=== PATIENT | female | born 1950 | race Caucasian/White ===

== ENCOUNTER 2024-02-15 08:42 | Emergency (ER) | payer MEDICARE, OTHER, SELFPAY ==
[2024-02-15 08:44] VITALS: BP 109/53
[2024-02-15 08:58] VITALS: BMI 23.3
[2024-02-15 09:00] VITALS: BP 116/90
[2024-02-15 09:15] LABS: Hematocrit 38.7 % (37.0-47.0); Hemoglobin 12.4 g/dL (12.0-16.0); Mean Corpuscular Hgb 27.6 pg (27.0-31.0); Mean Corpuscular Volume 86.2 fL (81.0-99.0); Mean Platelet Volume 9.6 fL (7.4-10.4); Platelet Count 445 10^3/uL (130-400); Red Blood Cell Count 4.49 10^6/uL (4.20-5.40); Red Cell Dist. Width 14.1 % (11.5-14.5); White Blood Cell Count 23.4 10^3/uL (4.8-10.8)
[2024-02-15 09:16] LABS: ALT (SGPT) 17 U/L (0-35); AST (SGOT) 26 U/L (14-36); Albumin 3.9 g/dl (3.5-5.0); Alkaline Phosphatase 70 U/L (38-126); Blood Urea Nitrogen 15 mg/dl (7-17); Carbon Dioxide 33 mmol/L (22-30); Chloride 94 mmol/L (98-107); Estimated Creatinine Clearance 68 ml/min; Glucose 117 mg/dl (70-99); Lipase 145 U/L (23-300); Potassium 3.4 mmol/L (3.5-5.1); Sodium 138 mmol/L (135-145); Total Bilirubin 1.1 mg/dl (0.2-1.3); Total Protein 6.3 g/dl (6.3-8.2); eGFR > 60.00
--- NOTE | 2024-02-15 09:16 | ED.GENMED ---
History of Present Illness
General
Chief Complaint: Fainting/Passed Out
Time Seen by Provider: 02/15/24 08:48
History of Present Illness
History of Present Illness:
73-year-old female presenting to the emergency department with syncope and diarrhea. Patient reports for the past 3 weeks she has had diarrhea and abdominal cramping. Notes initially the cramping was severe, talk to her primary care doctor and
started a bland diet for suspected viral enteritis. The cramping improved, and noted that she had previously had fever that resolved. About 4 days ago, she made broth with tomi, which she feels worsened her symptoms. She again is having lower
abdominal cramping, persistent diarrhea. Denies any blood in the diarrhea. Denies known sick contacts. Does note that she was on antibiotics for 2 weeks, stopped antibiotics about 2 weeks ago after she had a bladder surgery. She believes that
could be contributing to her symptoms. Today, while she was trying to have bowel movement, she reports she was straining and subsequently had a syncopal episode. Notes associated lightheadedness. Denies prodromal chest pain or difficulty
breathing. Does report history of a syncopal episode in the past. Denies additional acute medical complaints
Phy Exam
Physical Exam
Physical Exam:
General: Well-appearing, no clinical signs of dehydration, nontoxic and in no acute distress
HEENT: protecting airway
Neck: appears supple
CV: Normal heart rate, regular rhythm
Resp: No accessory muscle use, no increased work of breathing, lungs clear to auscultation bilaterally
Abd: Soft and non-distended, generalized nonfocal tenderness to lower abdomen
Extremities: No deformities, no swelling
Neuro: alert, no focal neurologic deficit
: deferred
Rectal: deferred
Psych: Normal affect
Skin: Intact
Course
Orders/Labs/Results
Orders:
Orders
02/15/24 08:49
Cardiac Monitoring- Treatment ONCE
IV Insert/Care/Rem.- Treatment PRN
02/15/24 08:52
Complete Blood Count/With Diff Urgent
Comprehensive Metabolic Panel Urgent
Lipase Urgent
02/15/24 09:12
CT Abd/pelvis W Iv Cont Urgent
Comment:
Reason For Exam: lower abdominal pain, diarrhea
STOOL [C difficile Antigen & Toxins] Urgent
EFREM Source: Feces/Stool
Specimen Description:
Stool Culture Urgent
EFREM Source: Feces/Stool
Specimen Description:
0.9% Sodium Chloride 1000 ml [Nss] 1,000 ml IV BOLUS
02/15/24 09:13
Electrocardiogram (*1) Urgent
Reason for Study: Syncope
EKG- Treatment ONCE
02/15/24 09:19
Troponin I Urgent
Abnormal Lab Results
02/15/24
08:52
WBC 23.4 H 10^3/uL
(4.8-10.8)
MCHC 32.0 L g/dL
(33.0-37.0)
Plt Count 445 H 10^3/uL
(130-400)
Abs Immat Gran (auto) 0.2 H 10^3/uL
(0-0.05)
Absolute Neuts (auto) 20.2 H 10^3/uL
(1.4-6.5)
Absolute Monos (auto) 1.0 H 10^3/uL
(0.1-0.6)
Immature Gran % 1.0 H %
(0-0.5)
Neutrophils % 86.1 H %
(42.2-75.2)
Lymphocytes % 7.8 L %
(20.5-51.1)
Potassium 3.4 L mmol/L
(3.5-5.1)
Chloride 94 L mmol/L
(98-107)
Carbon Dioxide 33 H mmol/L
(22-30)
Glucose 117 H mg/dl
(70-99)
12/16/24 08:52
02/15/24 08:52
Vital Signs
Initial and Last Documented VS:
Initial Vital Signs
Temp Pulse Resp BP Pulse Ox
98.4 F 88 18 109/53 97
02/15/24 08:44 02/15/24 08:44 02/15/24 08:44 02/15/24 08:44 02/15/24 08:44
Last Documented Vital Signs
Temp Pulse Resp BP Pulse Ox
98.4 F 98 25 119/64 94
02/15/24 08:44 02/15/24 13:00 02/15/24 13:00 02/15/24 13:00 02/15/24 13:00
MDM/Problems Addressed
MDM/Problems Addressed:
73-year-old female presenting for diarrhea, lower abdominal cramping, syncopal episode.
Vital signs on arrival are normal.
On exam, patient is nontoxic, however does have some dry mucous membranes. On abdominal exam, generalized nonfocal tenderness to lower abdomen, without rebound or guarding. Regarding GI illness, possible enteritis. Does note recent antibiotic
usage, so C. difficile is a consideration. However, patient notes that her stool is still brown in color. Diverticulitis is also consideration given tenderness to lower abdomen. Given duration of symptoms, plan for laboratory analysis, CT imaging
of the abdomen. Will get stool samples if patient able to provide. Will start patient on IV fluids for suspicion of volume depletion. Regarding syncopal episode, suspect vasovagal component, was straining to have a bowel movement and appears
dehydrated to begin with. Will obtain EKG as well as laboratory analysis.
11:00 -Labs show elevated white blood cell count, normal electrolyte panel. Vitals otherwise remained stable without concern for sepsis. CT shows sigmoid colitis, consistent with exam. Pending stool sample for rule out C. difficile
13:00 -patient has been unable to provide a stool sample. At this time lower suspicion for C. difficile. Feel stable for discharge. Will start patient on Augmentin. Advised continued oral hydration. Advise following up with PCP, could provide a
stool sample at that time if needed. Strict return precautions were communicated, and patient and at bedside verbalized understanding
*EKG
Interpreted by ED Provider?: Yes
EKG Intrepretation Date: 02/15/24
EKG Intrepretation Time: 09:22
Interpretation: normal
Heart Rate: 86
Rate: normal
Rhythm: sinus
[place]: normal axis
Interval: normal interval
QRS Pattern: normal QRS
Ischemia: no ischemia
*Critical Care Note
Total Time (30-74mins, 75-104mins- exclusive of procedures): Not Applicable
ED Attending Note
-
Portions of this chart may have been created with voice recognition software.� Occasional wrong word or��sound alike� substitutions may have occurred due to the inherent limitations of voice recognition software.
Discharge Plan
Departure
Referrals:
Meño Ruby MD [Family Provider] -
Interventions
Interventions:
*Risk Screen - Suicide Last Done: 02/15/24 08:44
*General Assessment Last Done: 02/15/24 08:44
*Neglect/Abuse Screening Last Done: 02/15/24 08:44
ED- Fall Risk Assessment Last Done: 02/15/24 09:27
*ED COVID-19 Vaccine History Last Done: 02/15/24 09:30
ED- Cardiac Assessment Last Done: 02/15/24 09:27
ED- Neurological Assessment Last Done: 02/15/24 09:27
Discharge Date and Time
Print Language: SYRIAC
[2024-02-15] MEDS: NSS 1000 IV (09:22)
--- NOTE | 2024-02-15 09:25 | EDRN ---
Pt states she has had 5 weeks of 'diarrhea' described as 'squiggly things jovi in color ' and muscous. Pt states she had abd pain 10/10 and trying to push for a BM and fainted on the toilet this am.
[2024-02-15 09:52] LABS: Troponin I < 0.012 ng/ml
[2024-02-15 10:27] VITALS: BP 118/74
[2024-02-15 10:44] LABS: % Basophils 0.3 % (0-2); % Eosinophils 0.7 % (0-6); % Lymphocytes 7.8 % (20.5-51.1); % Monocytes 4.1 % (1.7-9.3); % Neutrophils 86.1 % (42.2-75.2); Absolute Basophils 0.1 10^3/uL (0-0.2); Absolute Eosinophils 0.2 10^3/uL (0-0.7); Absolute Immature Granulocytes 0.2 10^3/uL (0-0.05); Absolute Lymphocytes 1.8 10^3/uL (1.2-3.4); Absolute Neutrophils 20.2 10^3/uL (1.4-6.5); Nucleated Red Blood Cells % 0 %
[2024-02-15 11:00] VITALS: BP 110/72
--- NOTE | 2024-02-15 11:26 | EDRN ---
Pt ambulated w/ assist of one to BR to attempt a stool spec.
[2024-02-15 12:00] VITALS: BP 126/73
[2024-02-15 13:00] VITALS: BP 119/64
--- NOTE | 2024-02-15 13:01 | EDRN ---
Pt has not had a BM since arrival. Dr. Alvarez in room w/ pt at this time.
[2024-02-15] MEDS: AUGMENTIN 875 MG/125 MG 1 TABLET PO (13:19)
== END 2024-02-15 13:39 | disposition home or self-care (01) ==
LOC: EMR 08:42
PROVIDERS: EMERGENCY PHYSICIAN Student in an Organized Health Care Education/Training Program; FAMILY PHYSICIAN Family Medicine
DX: K52.9 Noninfective gastroenteritis and colitis, unspecified (principal); E86.0 Dehydration
CPT/HCPCS: 99285; 96360; 96361 ×2; 74177; 80053; 83690; 84484; 85025; 93005; Q9967

== ENCOUNTER 2024-03-22 06:21 | Emergency (ER) | payer MEDICARE, SELFPAY ==
[2024-03-22] VITALS (11 sets, daily range): BP systolic 102–127; BP diastolic 57–86; PULSE 91–111
[2024-03-22 06:53] LABS: Hematocrit 38.6 % (37.0-47.0); Hemoglobin 12.5 g/dL (12.0-16.0); Mean Corp Hgb Conc. 32.4 g/dL (33.0-37.0); Mean Corpuscular Hgb 27.8 pg (27.0-31.0); Mean Platelet Volume 10.9 fL (7.4-10.4); Platelet Count 250 10^3/uL (130-400); Red Blood Cell Count 4.49 10^6/uL (4.20-5.40); Red Cell Dist. Width 14.9 % (11.5-14.5); White Blood Cell Count 11.8 10^3/uL (4.8-10.8)
[2024-03-22 06:57] LABS: ALT (SGPT) 16 U/L (0-35); AST (SGOT) 27 U/L (14-36); Albumin 4.3 g/dl (3.5-5.0); Alkaline Phosphatase 58 U/L (38-126); Blood Urea Nitrogen 20 mg/dl (7-17); Calcium 9.5 mg/dl (8.4-10.2); Carbon Dioxide 28 mmol/L (22-30); Chloride 96 mmol/L (98-107); Estimated Creatinine Clearance 60 ml/min; Glucose 147 mg/dl (70-99); Potassium 3.9 mmol/L (3.5-5.1); Sodium 135 mmol/L (135-145); Total Bilirubin 2.9 mg/dl (0.2-1.3); Total Protein 6.8 g/dl (6.3-8.2); eGFR > 60.00
[2024-03-22 07:26] LABS: COVID-19 Antigen Negative (Negative)
[2024-03-22] MEDS: NSS 1000 IV ×2 (07:43→13:20)
[2024-03-22 07:49] LABS: Lipase 73 U/L (23-300)
[2024-03-22 08:11] LABS: Absolute Neutrophils -Man Diff 9.6 10^3/uL (1.4-6.5); Atypical Lymphocytes 2 %; Band Neutrophils 27 % (0-3); Lymphocytes 11 % (20-51); Metamyelocytes 1 % (-); Monocytes 4 % (2-9); Segmented Neutrophils 55 % (42-75)
[2024-03-22 08:12] LABS: Normal RBC Morphology Yes; Platelets Checked Yes; Total Cells Counted 100
--- NOTE | 2024-03-22 08:31 | ED.GENMED ---
History of Present Illness
General
Chief Complaint: Abdominal Symptoms
Source: patient and spouse
Exam Limitations: none
Time Seen by Provider: 03/22/24 07:16
Nursing documentation reviewed up to this point in time: agreed with
History of Present Illness
History of Present Illness:
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 difficile colitis on
02/15/24. Took Vancomycin for 10 days and improved
Presents today for frequent liquid diarrhea once yesterday and 3 times during the night. Non bloody. Had 100.9 temp last night. [place] nauseous, no vomiting. Denies abdominal pain. Feels fatigued
This a.m. went to wash herself in the shower as she was incontinent of diarrhea and had a near syncope episode, was with her and lowered her in the tub, no injury.
at bedside provided some of history
Past History
Past History
ED Past Medical History: HTN, Hypothyroidism and Other (C didd)
Social History
Tobacco: Non-smoker
Alcohol: None
Personal:
Living: with family
Employment: Not employed
Review of Systems
Review of Systems
Allergies reviewed?: Yes
All Other Systems: ROS reviewed and negative except as documented in HPI and ROS
Constitutional: Reports fever (Yesterday 100.6) and fatigue; Denies chills
Respiratory: Denies trouble breathing
Cardiac: Denies chest pain, palpitations or syncope
ABD/GI: Reports nausea, diarrhea and anorexia; Denies abdominal pain, vomiting, bloody stools or black stools
: Reports no symptoms
Musculoskeletal: Reports no symptoms
Skin: Reports no symptoms
Neurological: Reports no symptoms
Phy Exam
Physical Exam
Physical Exam:
GENERAL: No acute distress. A&Ox3.
CONSTITUTIONAL: Afebrile.
EYES: clear, conjunctivae normal
ENMT: moist mucus membranes, Pharynx nl
RESPIRATORY: Regular respirations, nonlabored, lungs clear.
CARDIOVASCULAR: Regular rate and rhythm, no murmurs, no rubs.
GI: Soft, nontender, normal BS
MUSCULOSKELETAL: Moves with ease. Well perfused.
SKIN: Warm, dry, pink
PSYCH: Normal mood and affect. Well kept, interactive and appropriate
NEUROLOGIC: Awake, alert and oriented. No focal neurological deficits
Course
Orders/Labs/Results
Orders:
Orders
03/22/24 06:32
CMP [Comprehensive Metabolic Panel] Urgent
COVID-19 Antigen Urgent
Source: Nasal Swab
Complete Blood Count/With Diff Urgent
Lipase Urgent
Comment: ADDED
Manual Differential Urgent
Influenza A+B Rapid Molecular Urgent
EFREM Source: Nasal Swab
Specimen Description:
03/22/24 06:48
Add On- LAB Urgent
Tests Added?: lipase
03/22/24 07:38
0.9% Sodium Chloride 1000 ml [Nss] 1,000 ml IV BOLUS
03/22/24 09:37
Norovirus by PCR Urgent
EFREM Source: Feces/Stool
Specimen Description:
Date Specimen was Collected: 03/22/24
Time Specimen was Collected: 09:34
STOOL [C difficile Antigen & Toxins] Urgent
EFREM Source: Feces/Stool
Specimen Description:
Date Specimen was Collected: 03/22/24
Time Specimen was Collected: 09:34
Stool Culture Urgent
EFREM Source: Feces/Stool
Specimen Description:
Date Specimen was Collected: 03/22/24
Time Specimen was Collected: 09:34
03/22/24 12:25
Orthostatic VS- Treatment ONCE
03/22/24 13:19
0.9% Sodium Chloride 1000 ml [Nss] 1,000 ml IV BOLUS
Abnormal Lab Results
03/22/24
06:32
WBC 11.8 H 10^3/uL
(4.8-10.8)
MCHC 32.4 L g/dL
(33.0-37.0)
RDW 14.9 H %
(11.5-14.5)
MPV 10.9 H fL
(7.4-10.4)
Abs Neuts (Manual) 9.6 H 10^3/uL
(1.4-6.5)
Band Neutrophils 27 H %
(0-3)
Lymphocytes (Manual) 11 L %
(20-51)
Chloride 96 L mmol/L
(98-107)
BUN 20 H mg/dl
(7-17)
Glucose 147 H mg/dl
(70-99)
Total Bilirubin 2.9 H mg/dl
(0.2-1.3)
03/22/24 06:32
03/22/24 06:32
Vital Signs
Initial and Last Documented VS:
Initial Vital Signs
Temp Pulse Resp BP Pulse Ox
98.2 F 106 18 116/81 97
03/22/24 06:22 03/22/24 06:22 03/22/24 06:22 03/22/24 06:22 03/22/24 06:22
Last Documented Vital Signs
Temp Pulse Resp BP Pulse Ox
98.2 F 95 18 118/69 93
03/22/24 06:22 03/22/24 12:15 03/22/24 12:15 03/22/24 12:00 03/22/24 12:15
MDM/Problems Addressed
Differential Diagnosis Includes:
Norovirus, C. difficile, dehydration
MDM/Problems Addressed:
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 difficile colitis on
02/15/24. I do not know how to need to be I mean that there does not hold somebody from a I know I I would never do it sounds like crazy but on the other text what about the took Vancomycin for 10 days and improved
Presents today for frequent liquid diarrhea once yesterday and 3 times during the night. Non bloody. Had 100.9 temp last night. [place] nauseous, no vomiting. Denies abdominal pain. Feels fatigued
This a.m. went to wash herself in the shower as she was incontinent of diarrhea and had a near syncope episode, was with her and lowered her in the tub, no injury.
Afebrile
NAD
7:15 a.m.
CBC mild leukocytosis, otherwise with no clinically significant abnormality
CMP: Total bilirubin 2.9, most likely reactive, BUN 20, IV fluids infusing otherwise no clinically significant abnormality
Influenza A&B neg
9:00 a.m.
Patient had 2 watery diarrheal stools, malodorous, nonbloody, cultures pending. Resting quietly with eyes closed. at bedside
11:45 a.m.
Stool Cdiff toxin positive
Norovirus neg
Plan: Vancomycin 125 mg QID
Pt has enough at home and a refill, her GI Dr. Camargo told her if the Cdiff comes back to start the Vanco again for 10 days. She will notify him of today's visit
Pt afebrile, no significant Leukocytosis, no abd pain, no vomiting, no bloody stools, stable for discharge
12:45 PM:
Discharge instructions reviewed with patient. Her came back into the room and states he is not comfortable taking her home he is afraid she will faint again.
After 1 L of IV fluids, orthostatics negative
She does remain slightly tachycardic at 90-102 so we will give her another liter of fluid. She has had several episodes of small amounts of liquid diarrhea.
She has had about 500 mL of water po and is not nauseous or vomiting.
2:50 p.m.
2nd liter NSS infused.
Pt has been on phone with her GI doctor who called in rx for Vowst that she will start today. She has f/u appointment with him in one week.
Return instructions discussed with pt and . They are comfortable going home.
*Critical Care Note
Total Time (30-74mins, 75-104mins- exclusive of procedures): Not Applicable
ED Attending Note
-
Portions of this chart may have been created with voice recognition software.� Occasional wrong word or��sound alike� substitutions may have occurred due to the inherent limitations of voice recognition software.
Discharge Plan
Departure
Patient Disposition: Home (Routine Discharge)
Date of Disposition: 03/22/24
Time of Disposition: 14:50
Patient with high blood pressure during this ER visit?: No
Condition: Good
Discharge Problem:
C. difficile diarrhea, Acute dehydration
Instructions: Dehydration, Adult (DC), C. difficile infection
Prescriptions:
No Action
levothyroxine [Synthroid] 125 mcg Tablet
125 mcg PO Q48H
vancomycin 250 mg Capsule
250 mg PO QID
vitamin B complex [B Complete] Tablet
1 tab PO DAILY
lisinopril-hydrochlorothiazide 10-12.5 mg Tablet
1 tab PO DAILY
levothyroxine [Synthroid] 112 mcg Tablet
112 mcg PO Q48H
Referrals:
Meño Ruby MD [Family Provider] -
Alexis Camargo DO [Non-Admitting Privileges] - Call in 1-3 days for appt
Activity Restrictions/Additional Instructions:
As we discussed, drink at least eight 8 ounce glasses of water/fluid daily to stay hydrated.
When going from laying to sitting, sit for 30 seconds before standing to be sure you are not feeling dizzy then stand for several seconds before you start your activity to avoid fainting.
Call your GI doctor today and inform of today's visit. Start your vancomycin 125 mg 4 times a day when you get home
Seek medical care immediately for fever above 100.4, bloody diarrhea, abdominal pain, vomiting more than once in 1 hour or feeling sicker in any way
Interventions
Interventions:
*Risk Screen - Suicide Last Done: 03/22/24 06:50
*General Assessment Last Done: 03/22/24 06:22
*Neglect/Abuse Screening Last Done: 03/22/24 06:22
ED- Fall Risk Assessment Last Done: 03/22/24 06:29
*ED COVID-19 Vaccine History Last Done: 03/22/24 06:29
CH-Kdpnch-Gatzujkwxm Assessment Last Done: 03/22/24 06:48
Discharge Date and Time
Print Language: EGYPTIAN
== END 2024-03-22 15:11 | disposition home or self-care (01) ==
LOC: EMR 06:21
PROVIDERS: EMERGENCY PHYSICIAN Emergency Medicine; FAMILY PHYSICIAN Family Medicine
DX: A04.72 Enterocolitis due to Clostridium difficile, not specified as recurrent (principal); E86.0 Dehydration; Z11.52 Encounter for screening for COVID-19
CPT/HCPCS: 99284; 96360; 80053; 83690; 85025; 87045; 87046; 87324; 87427; 87449; 87502; 87798; 87811

== ENCOUNTER 2024-07-14 15:14 | Outpatient (RCR) | payer MEDICARE, BC, SELFPAY | END 2024-07-14 23:59 | disposition home or self-care (01) | LOC: ROT 15:14 | PROVIDERS: ATTENDING PHYSICIAN Physical Medicine & Rehabilitation | DX: M25.531 Pain in right wrist (principal); M25.532 Pain in left wrist; Z73.6 Limitation of activities due to disability; M13.842 Other specified arthritis, left hand; M13.841 Other specified arthritis, right hand; Z85.51 Personal history of malignant neoplasm of bladder | CPT/HCPCS: 97018; 97110; 97166; 97535 ==

== ENCOUNTER 2024-08-29 09:23 | Outpatient (RCR) | payer MEDICARE, BC, SELFPAY | END 2024-08-29 23:59 | disposition home or self-care (01) | LOC: ROT 09:23 | PROVIDERS: ATTENDING PHYSICIAN Physical Medicine & Rehabilitation | DX: M25.531 Pain in right wrist (principal); M25.532 Pain in left wrist; Z73.6 Limitation of activities due to disability; M13.842 Other specified arthritis, left hand; M13.841 Other specified arthritis, right hand; Z85.51 Personal history of malignant neoplasm of bladder | CPT/HCPCS: 97018; 97110 ==